=== PATIENT | male | born 1925 | race Two or more races ===

== ENCOUNTER 2016-03-05 05:48 | Emergency (ER) | payer MEDICARE ==
[2016-03-05] MEDS ORDERED: NS 0.9% 1000 ML* 1,000 ML IV ONE (05:58)
[2016-03-05 06:13] LABS: Hematocrit 38 % (42-52); Hemoglobin 11.7 g/dl (14.0-18.0); Mean Corpuscular HGB Conc 31 g/dl (31-36); Mean Corpuscular Hemoglobin 24 pg (27-31); Mean Corpuscular Volume 75 fL (80-94); Mean Platelet Volume 9 um3 (7.4-10.4); Red Blood Count 4.99 10^6/ul (4.0-5.4); Red Cell Distribution Width 15 % (10.5-15); White Blood Count 7.2 10^3/ul (3.5-10.8)
[2016-03-05 06:25] LABS: ALT 10 U/L (7-52); AST 18 U/L (13-39); Alkaline Phosphatase 63 U/L (34-104); Anion Gap 6 mmol/L (2-11); BUN/Creatinine Ratio 15.3 (8-20); Blood Urea Nitrogen 15 mg/dL (6-24); C Reactive Protein < 1.00 mg/L (< 5.00); CO2 Carbon Dioxide 33 mmol/L (22-32); Calcium 9.6 mg/dL (8.6-10.3); Chloride 101 mmol/L (101-111); Creatine Kinase 113 U/L (10-223); EGFR African American 92.6 (>60); Globulin 4.1 g/dL (2-4); Glucose 118 mg/dL (70-100); Lipase 30 U/L (11.0-82.0); Magnesium 2.1 mg/dL (1.9-2.7); Potassium 3.8 mmol/L (3.5-5.0); Sodium 140 mmol/L (133-145); Total Protein 8.1 g/dL (6.4-8.9)
[2016-03-05 06:28] LABS: Troponin I 0.01 ng/mL (<0.04)
[2016-03-05 06:55] LABS: TSH (Thyroid Stimulating Horm) 1.73 mcIU/mL (0.34-5.60)
[2016-03-05 09:29] VITALS: BP 122/76
--- NOTE | 2016-03-05 09:30 | RAD ---
indication: Traumatic injury to the left side of the face after a fall from bed COMPARISON: CT of the brain dated March 16, [address] scan of the brain, maxillofacial bones and c-spine was performed without intravenous contrast enhancement. Contiguous axial sections were obtained from the lung apices through the vertex. BRAIN: The ventricles, cisterns and sulci exhibit stable age-related involutional changes. No significant focal abnormality or mass effect is seen. There is moderate periventricular and subcortical white matter hypoattenuation, unchanged significantly from the most recent brain CT, and most consistent with chronic microvascular disease. Tamez-white differentiation is adequately maintained. There is no evidence for intracranial hemorrhage. No significant bony abnormality is present. The mastoid air cells are appropriately aerated. The visualized paranasal sinuses are clear. FACIAL BONES: Bones: There is no displaced fracture or dislocation. The orbital rim is intact. The zygomatic arch is intact. The pterygoid plates are intact. Bilaterally there is flattening of the mandibular condyles and narrowing of the temporomandibular joints. Orbits: The globes are round. The optic nerves are symmetric. The extraocular musculature is normal. There is no post septal or intraconal inflammatory change. There is no retrobulbar hematoma. Paranasal Sinuses: The paranasal sinuses are clear. C-SPINE: The cervical spine exhibits levo convexed curvature depicted best in the coronal plane. There is nonspecific straightening of the normal cervical lordosis on the sagittal view images. Otherwise the vertebral bodies and facet joints are appropriately aligned. There is no appearance of an acute fracture or dislocation. Advanced degenerative changes include loss of intervertebral disc height, marginal osteophyte formation and uncovertebral hypertrophy is depicted well on the coronal plane images. There is no hyperdense material in the cervical canal to indicate hemorrhage. The visualized musculature and soft tissues are normal. There is no gross lymphadenopathy visualized. There is coarse atherosclerotic calcification of the bilateral carotid bulbs. Incidentally noted is an azygos lobe fissure. The visualized portion of the lung apices are clear. IMPRESSION: 1. Chronic involutional changes and evidence of microvascular disease without acute calvarial fracture or acute intracranial hemorrhage. 2. No facial bone fractures. 3. Advanced degenerative changes of the cervical spine without acute fracture or dislocation.
--- NOTE | 2016-03-05 10:06 | RAD ---
INDICATION: Patient found unresponsive next a bed. COMPARISON: Most recent comparison chest x-ray is dated January 15, 2016 TECHNIQUE: Single AP portable view of the chest was obtained. FINDINGS: Image quality is compromised due to the relative inferiority of a portable chest x-ray. The heart and mediastinum exhibit normal size and contour. The lungs are grossly clear. There is no evidence of a large pleural effusion. Visualized bones are normal for the patient's age. IMPRESSION: No radiographic evidence for acute cardiopulmonary abnormality on this portable chest x-ray.
--- NOTE | 2016-03-08 16:32 | ED ---
Janene Montesinos Adam, scribed for Hakeem Myrick MD on 03/05/16 at 0855 . Progress - Results/Orders Results/Orders: Cervical spine CT: negative for cervical fx or acute cervical malalignment. Heterogeneous appearance to the marrow of C2-C6 vertebrae with punctate lucencies and areas of sclerosis. Brain CT: Involutional changes with mild ventriculomegaly, No bleed, No visible acute infarct, Osseous structures are intact. Maxillofacial CT: Negative - EKG/XRAY/CT XRAY: chest Xray Comments: No acute disease Re-Evaluation - Re-Evaluation First Eval Re-Evaluation Time: 08:53 Change: Improved Comment: Alert, tolerated breakfast, in no distress. Waiting for CXR Course/Dx - Diagnoses Provider Diagnoses: Fall, Hypoglycemia, Abnormal finding on CT scan, C2-C6 bony abnormality The documentation as recorded by the juanibJanene sepulveda Adam accurately reflects the service I personally performed and the decisions made by Elen abdi Jerry, MD.
--- NOTE | 2016-04-03 22:17 | ED ---
Gabriel Montesinos Rebecca, scribed for Kody Zarate MD on 03/05/16 at 0555 . HPI Diabetic <Hakeem Myrick - Last Filed: 03/08/16 16:34> - HPI Summary HPI Summary: Pt is an 89 y/o M BIBA who comes to ED p/w hypoglycemia s/p rolling out of bed. Pt is a resident at [facility]) where he was found on the ground, rolled out of bed at 0330. Pt was helped back into bed. At approximately 0530, pt was found out of bed again, with a blood sugar of 32. This was untreated and at EMS were called, who then reported a blood sugar of 28. En route, EMS administered D50. Sx alleviated by D50, aggravated by nothing. Pt denies any pain when asked. Is on Plavix (blood thinner). - History Of Current Complaint Hx Obtained From: Patient, EMS Onset/Duration: Sudden Onset, Lasting Hours - 2.5 Severity Initially: Moderate Severity Currently: Mild Character: Alert, Other - Minimally verbal Aggravating: Nothing Alleviating: EMS Treatment - D50 Associated Signs & Symptoms: Negative <Kody Zarate - Last Filed: 04/03/16 22:17> - History Of Current Complaint Chief Complaint: EDDiabeticProb Time Seen by Provider: 03/05/16 05:51 - Allergies/Home Medications Allergies/Adverse Reactions: Allergies Allergy/AdvReac Type Severity Reaction Status Date / Time No Known Allergies Allergy Verified 03/16/14 10:11 PMH/Surg Hx/FS Hx/Imm Hx Endocrine/Hematology History: Reports: Hx Diabetes Cardiovascular History: Reports: Hx Hypercholesterolemia, Hx Hypertension Respiratory History: Reports: Other Respiratory Problems/Disorders - home o2 History: Reports: Other Problems/Disorders - hx of unspecified urinary retention Musculoskeletal History: Reports: Hx Arthritis Sensory History: Reports: Hx Contacts or Glasses, Hx Vision Problem - pt stated he , "wears glasses some times to read"., Hx Hearing Problem - Pt stated, "I have a hard time hearing" Opthamlomology History: Reports: Hx Contacts or Glasses, Hx Vision Problem - pt stated he , "wears glasses some times to read". Neurological History: Reports: Other Neuro Impairments/Disorders - Pt has parkinsons history Psychiatric History: Reports: Hx Schizophrenia - Surgical History Surgery Procedure, Year, and Place: PT. STATES STOMACH SURGERY Infectious Disease History: Yes Infectious Disease History: Reports: Hx of Known/Suspected MRSA Denies: Traveled Outside the [place] in Last 30 Days - Family History Known Family History: Positive: Hypertension - Social History Lives: At [facility] Alcohol Use: None Substance Use Type: Reports: None Smoking Status (MU): Former Smoker <Zarate,Kody - Last Filed: 04/03/16 22:17> Review of Systems Positive: Other - Hypoglycemia Negative: Arthralgia All Other Systems Reviewed And Are Negative: Yes <ZarateKody - Last Filed: 04/03/16 22:17> Physical Exam Vital Signs On Initial Exam: Initial Vitals Temp Pulse Resp BP Pulse Ox 36.1 C 89 16 159/104 97 03/05/16 05:49 03/05/16 05:49 03/05/16 05:49 03/05/16 05:49 03/05/16 05:49 <Hakeem Myrick - Last Filed: 03/08/16 16:34> Triage Information Reviewed: Yes Vital Signs On Initial Exam: Initial Vitals Temp Pulse Resp BP Pulse Ox 96.9 F 89 16 159/104 97 03/05/16 05:49 03/05/16 05:49 03/05/16 05:49 03/05/16 05:49 03/05/16 05:49 Vital Signs Reviewed: Yes Appearance: Positive: Well-Appearing, No Pain Distress Skin: Positive: Warm, Skin Color Reflects Adequate Perfusion, Dry Head/Face: Positive: Other - Ecchymosis on the L side of the face Eyes: Positive: EOMI, RHIANNON ENT: Positive: Other - Oral mucosa dry Neck: Positive: Supple, Nontender Respiratory/Lung Sounds: Positive: Clear to Auscultation, Breath Sounds Present Cardiovascular: Positive: RRR Abdomen Description: Positive: Nontender, Soft Bowel Sounds: Positive: Present Musculoskeletal: Positive: Other - Shaking Neurological: Positive: Normal, Sensory/Motor Intact Psychiatric: Positive: Affect/Mood Appropriate AVPU Assessment: Verbal (Reponds To) - Minially verbal <Zarate,Kody - Last Filed: 04/03/16 22:17> Diagnostics - Vital Signs Vital Signs Temp Pulse Resp BP Pulse Ox 03/05/16 09:29 37.0 C 80 16 122/76 98 03/05/16 06:02 94 16 93 03/05/16 06:00 162/81 03/05/16 05:49 36.1 C 89 16 159/104 97 - Laboratory Lab Results: Lab Results 03/05/16 03/05/16 03/05/16 Range/Units 05:44 05:58 05:58 WBC 7.2 (3.5-10.8) 10^3/ul RBC 4.99 (4.0-5.4) 10^6/ul Hgb 11.7 L (14.0-18.0) g/dl Hct 38 L (42-52) % MCV 75 L (80-94) fL MCH 24 L (27-31) pg MCHC 31 (31-36) g/dl RDW 15 (10.5-15) % Plt Count 172 (150-450) 10^3/ul MPV 9 (7.4-10.4) um3 Neut % (Auto) 88.7 H (38-83) % Lymph % (Auto) 5.9 L (25-47) % Bates % (Auto) 5.1 (1-9) % Eos % (Auto) 0.1 (0-6) % Baso % (Auto) 0.2 (0-2) % Absolute Neuts (auto) 6.4 (1.5-7.7) 10^3/ul Absolute Lymphs (auto) 0.4 L (1.0-4.8) 10^3/ul Absolute Monos (auto) 0.4 (0-0.8) 10^3/ul Absolute Eos (auto) 0 (0-0.6) 10^3/ul Absolute Basos (auto) 0 (0-0.2) 10^3/ul Absolute Nucleated RBC 0.01 10^3/ul Nucleated RBC % 0.2 INR (Anticoag Therapy) 1.02 (0.89-1.11) APTT 30.5 (26.0-36.3) seconds Sodium (133-145) mmol/L Potassium (3.5-5.0) mmol/L Chloride (101-111) mmol/L Carbon Dioxide (22-32) mmol/L Anion Gap (2-11) mmol/L BUN (6-24) mg/dL Creatinine (0.67-1.17) mg/dL Est GFR ( Amer) (>60) Est GFR (Non-Af Amer) (>60) BUN/Creatinine Ratio (8-20) Glucose (70-100) mg/dL POC Glucose (mg/dL) 115 H (74-106) mg/dL Lactic Acid (0.5-2.0) mmol/L Calcium (8.6-10.3) mg/dL Magnesium (1.9-2.7) mg/dL Total Bilirubin (0.2-1.0) mg/dL AST (13-39) U/L ALT (7-52) U/L Alkaline Phosphatase (34-104) U/L Total Creatine Kinase (10-223) U/L CK-MB (CK-2) (0.6-6.3) ng/mL Troponin I (<0.04) ng/mL C-Reactive Protein (< 5.00) mg/L B-Natriuretic Peptide ( - 100) pg/mL Total Protein (6.4-8.9) g/dL Albumin (3.2-5.2) g/dL Globulin (2-4) g/dL Albumin/Globulin Ratio (1-3) Lipase (11.0-82.0) U/L TSH (0.34-5.60) mcIU/mL 03/05/16 03/05/16 03/05/16 Range/Units 05:58 05:58 05:58 WBC (3.5-10.8) 10^3/ul RBC (4.0-5.4) 10^6/ul Hgb (14.0-18.0) g/dl Hct (42-52) % MCV (80-94) fL MCH (27-31) pg MCHC (31-36) g/dl RDW (10.5-15) % Plt Count (150-450) 10^3/ul MPV (7.4-10.4) um3 Neut % (Auto) (38-83) % Lymph % (Auto) (25-47) % Bates % (Auto) (1-9) % Eos % (Auto) (0-6) % Baso % (Auto) (0-2) % Absolute Neuts (auto) (1.5-7.7) 10^3/ul Absolute Lymphs (auto) (1.0-4.8) 10^3/ul Absolute Monos (auto) (0-0.8) 10^3/ul Absolute Eos (auto) (0-0.6) 10^3/ul Absolute Basos (auto) (0-0.2) 10^3/ul Absolute Nucleated RBC 10^3/ul Nucleated RBC % INR (Anticoag Therapy) (0.89-1.11) APTT (26.0-36.3) seconds Sodium 140 (133-145) mmol/L Potassium 3.8 (3.5-5.0) mmol/L Chloride 101 (101-111) mmol/L Carbon Dioxide 33 H (22-32) mmol/L Anion Gap 6 (2-11) mmol/L BUN 15 (6-24) mg/dL Creatinine 0.98 (0.67-1.17) mg/dL Est GFR ( Amer) 92.6 (>60) Est GFR (Non-Af Amer) 72.0 (>60) BUN/Creatinine Ratio 15.3 (8-20) Glucose 118 H (70-100) mg/dL POC Glucose (mg/dL) (74-106) mg/dL Lactic Acid 1.9 (0.5-2.0) mmol/L Calcium 9.6 (8.6-10.3) mg/dL Magnesium 2.1 (1.9-2.7) mg/dL Total Bilirubin 0.40 (0.2-1.0) mg/dL AST 18 (13-39) U/L ALT 10 (7-52) U/L Alkaline Phosphatase 63 (34-104) U/L Total Creatine Kinase 113 (10-223) U/L CK-MB (CK-2) 2.6 (0.6-6.3) ng/mL Troponin I 0.01 (<0.04) ng/mL C-Reactive Protein < 1.00 (< 5.00) mg/L B-Natriuretic Peptide 137 H ( - 100) pg/mL Total Protein 8.1 (6.4-8.9) g/dL Albumin 4.0 (3.2-5.2) g/dL Globulin 4.1 H (2-4) g/dL Albumin/Globulin Ratio 1.0 (1-3) Lipase 30 (11.0-82.0) U/L TSH 1.73 (0.34-5.60) mcIU/mL 03/05/16 Range/Units 08:41 WBC (3.5-10.8) 10^3/ul RBC (4.0-5.4) 10^6/ul Hgb (14.0-18.0) g/dl Hct (42-52) % MCV (80-94) fL MCH (27-31) pg MCHC (31-36) g/dl RDW (10.5-15) % Plt Count (150-450) 10^3/ul MPV (7.4-10.4) um3 Neut % (Auto) (38-83) % Lymph % (Auto) (25-47) % Bates % (Auto) (1-9) % Eos % (Auto) (0-6) % Baso % (Auto) (0-2) % Absolute Neuts (auto) (1.5-7.7) 10^3/ul Absolute Lymphs (auto) (1.0-4.8) 10^3/ul Absolute Monos (auto) (0-0.8) 10^3/ul Absolute Eos (auto) (0-0.6) 10^3/ul Absolute Basos (auto) (0-0.2) 10^3/ul Absolute Nucleated RBC 10^3/ul Nucleated RBC % INR (Anticoag Therapy) (0.89-1.11) APTT (26.0-36.3) seconds Sodium (133-145) mmol/L Potassium (3.5-5.0) mmol/L Chloride (101-111) mmol/L Carbon Dioxide (22-32) mmol/L Anion Gap (2-11) mmol/L BUN (6-24) mg/dL Creatinine (0.67-1.17) mg/dL Est GFR ( Amer) (>60) Est GFR (Non-Af Amer) (>60) BUN/Creatinine Ratio (8-20) Glucose (70-100) mg/dL POC Glucose (mg/dL) 133 H (74-106) mg/dL Lactic Acid (0.5-2.0) mmol/L Calcium (8.6-10.3) mg/dL Magnesium (1.9-2.7) mg/dL Total Bilirubin (0.2-1.0) mg/dL AST (13-39) U/L ALT (7-52) U/L Alkaline Phosphatase (34-104) U/L Total Creatine Kinase (10-223) U/L CK-MB (CK-2) (0.6-6.3) ng/mL Troponin I (<0.04) ng/mL C-Reactive Protein (< 5.00) mg/L B-Natriuretic Peptide ( - 100) pg/mL Total Protein (6.4-8.9) g/dL Albumin (3.2-5.2) g/dL Globulin (2-4) g/dL Albumin/Globulin Ratio (1-3) Lipase (11.0-82.0) U/L TSH (0.34-5.60) mcIU/mL Result Diagrams: 03/05/16 05:58 03/05/16 05:58 Lab Statement: Any lab studies that have been ordered have been reviewed, and results considered in the medical decision making process. <Hakeem Myrick - Last Filed: 03/08/16 16:34> - Vital Signs Vital Signs Temp Pulse Resp BP Pulse Ox 03/05/16 09:29 98.6 F 80 16 122/76 98 03/05/16 06:02 94 16 93 03/05/16 06:00 162/81 03/05/16 05:49 96.9 F 89 16 159/104 97 - Laboratory Lab Results: Lab Results 03/05/16 03/05/16 03/05/16 Range/Units 05:44 05:58 05:58 WBC 7.2 (3.5-10.8) 10^3/ul RBC 4.99 (4.0-5.4) 10^6/ul Hgb 11.7 L (14.0-18.0) g/dl Hct 38 L (42-52) % MCV 75 L (80-94) fL MCH 24 L (27-31) pg MCHC 31 (31-36) g/dl RDW 15 (10.5-15) % Plt Count 172 (150-450) 10^3/ul MPV 9 (7.4-10.4) um3 Neut % (Auto) 88.7 H (38-83) % Lymph % (Auto) 5.9 L (25-47) % Bates % (Auto) 5.1 (1-9) % Eos % (Auto) 0.1 (0-6) % Baso % (Auto) 0.2 (0-2) % Absolute Neuts (auto) 6.4 (1.5-7.7) 10^3/ul Absolute Lymphs (auto) 0.4 L (1.0-4.8) 10^3/ul Absolute Monos (auto) 0.4 (0-0.8) 10^3/ul Absolute Eos (auto) 0 (0-0.6) 10^3/ul Absolute Basos (auto) 0 (0-0.2) 10^3/ul Absolute Nucleated RBC 0.01 10^3/ul Nucleated RBC % 0.2 INR (Anticoag Therapy) 1.02 (0.89-1.11) APTT 30.5 (26.0-36.3) seconds Sodium (133-145) mmol/L Potassium (3.5-5.0) mmol/L Chloride (101-111) mmol/L Carbon Dioxide (22-32) mmol/L Anion Gap (2-11) mmol/L BUN (6-24) mg/dL Creatinine (0.67-1.17) mg/dL Est GFR ( Amer) (>60) Est GFR (Non-Af Amer) (>60) BUN/Creatinine Ratio (8-20) Glucose (70-100) mg/dL POC Glucose (mg/dL) 115 H (74-106) mg/dL Lactic Acid (0.5-2.0) mmol/L Calcium (8.6-10.3) mg/dL Magnesium (1.9-2.7) mg/dL Total Bilirubin (0.2-1.0) mg/dL AST (13-39) U/L ALT (7-52) U/L Alkaline Phosphatase (34-104) U/L Total Creatine Kinase (10-223) U/L CK-MB (CK-2) (0.6-6.3) ng/mL Troponin I (<0.04) ng/mL C-Reactive Protein (< 5.00) mg/L B-Natriuretic Peptide ( - 100) pg/mL Total Protein (6.4-8.9) g/dL Albumin (3.2-5.2) g/dL Globulin (2-4) g/dL Albumin/Globulin Ratio (1-3) Lipase (11.0-82.0) U/L TSH (0.34-5.60) mcIU/mL 03/05/16 03/05/16 03/05/16 Range/Units 05:58 05:58 05:58 WBC (3.5-10.8) 10^3/ul RBC (4.0-5.4) 10^6/ul Hgb (14.0-18.0) g/dl Hct (42-52) % MCV (80-94) fL MCH (27-31) pg MCHC (31-36) g/dl RDW (10.5-15) % Plt Count (150-450) 10^3/ul MPV (7.4-10.4) um3 Neut % (Auto) (38-83) % Lymph % (Auto) (25-47) % Bates % (Auto) (1-9) % Eos % (Auto) (0-6) % Baso % (Auto) (0-2) % Absolute Neuts (auto) (1.5-7.7) 10^3/ul Absolute Lymphs (auto) (1.0-4.8) 10^3/ul Absolute Monos (auto) (0-0.8) 10^3/ul Absolute Eos (auto) (0-0.6) 10^3/ul Absolute Basos (auto) (0-0.2) 10^3/ul Absolute Nucleated RBC 10^3/ul Nucleated RBC % INR (Anticoag Therapy) (0.89-1.11) APTT (26.0-36.3) seconds Sodium 140 (133-145) mmol/L Potassium 3.8 (3.5-5.0) mmol/L Chloride 101 (101-111) mmol/L Carbon Dioxide 33 H (22-32) mmol/L Anion Gap 6 (2-11) mmol/L BUN 15 (6-24) mg/dL Creatinine 0.98 (0.67-1.17) mg/dL Est GFR ( Amer) 92.6 (>60) Est GFR (Non-Af Amer) 72.0 (>60) BUN/Creatinine Ratio 15.3 (8-20) Glucose 118 H (70-100) mg/dL POC Glucose (mg/dL) (74-106) mg/dL Lactic Acid 1.9 (0.5-2.0) mmol/L Calcium 9.6 (8.6-10.3) mg/dL Magnesium 2.1 (1.9-2.7) mg/dL Total Bilirubin 0.40 (0.2-1.0) mg/dL AST 18 (13-39) U/L ALT 10 (7-52) U/L Alkaline Phosphatase 63 (34-104) U/L Total Creatine Kinase 113 (10-223) U/L CK-MB (CK-2) 2.6 (0.6-6.3) ng/mL Troponin I 0.01 (<0.04) ng/mL C-Reactive Protein < 1.00 (< 5.00) mg/L B-Natriuretic Peptide 137 H ( - 100) pg/mL Total Protein 8.1 (6.4-8.9) g/dL Albumin 4.0 (3.2-5.2) g/dL Globulin 4.1 H (2-4) g/dL Albumin/Globulin Ratio 1.0 (1-3) Lipase 30 (11.0-82.0) U/L TSH 1.73 (0.34-5.60) mcIU/mL 03/05/16 Range/Units 08:41 WBC (3.5-10.8) 10^3/ul RBC (4.0-5.4) 10^6/ul Hgb (14.0-18.0) g/dl Hct (42-52) % MCV (80-94) fL MCH (27-31) pg MCHC (31-36) g/dl RDW (10.5-15) % Plt Count (150-450) 10^3/ul MPV (7.4-10.4) um3 Neut % (Auto) (38-83) % Lymph % (Auto) (25-47) % Bates % (Auto) (1-9) % Eos % (Auto) (0-6) % Baso % (Auto) (0-2) % Absolute Neuts (auto) (1.5-7.7) 10^3/ul Absolute Lymphs (auto) (1.0-4.8) 10^3/ul Absolute Monos (auto) (0-0.8) 10^3/ul Absolute Eos (auto) (0-0.6) 10^3/ul Absolute Basos (auto) (0-0.2) 10^3/ul Absolute Nucleated RBC 10^3/ul Nucleated RBC % INR (Anticoag Therapy) (0.89-1.11) APTT (26.0-36.3) seconds Sodium (133-145) mmol/L Potassium (3.5-5.0) mmol/L Chloride (101-111) mmol/L Carbon Dioxide (22-32) mmol/L Anion Gap (2-11) mmol/L BUN (6-24) mg/dL Creatinine (0.67-1.17) mg/dL Est GFR ( Amer) (>60) Est GFR (Non-Af Amer) (>60) BUN/Creatinine Ratio (8-20) Glucose (70-100) mg/dL POC Glucose (mg/dL) 133 H (74-106) mg/dL Lactic Acid (0.5-2.0) mmol/L Calcium (8.6-10.3) mg/dL Magnesium (1.9-2.7) mg/dL Total Bilirubin (0.2-1.0) mg/dL AST (13-39) U/L ALT (7-52) U/L Alkaline Phosphatase (34-104) U/L Total Creatine Kinase (10-223) U/L CK-MB (CK-2) (0.6-6.3) ng/mL Troponin I (<0.04) ng/mL C-Reactive Protein (< 5.00) mg/L B-Natriuretic Peptide ( - 100) pg/mL Total Protein (6.4-8.9) g/dL Albumin (3.2-5.2) g/dL Globulin (2-4) g/dL Albumin/Globulin Ratio (1-3) Lipase (11.0-82.0) U/L TSH (0.34-5.60) mcIU/mL Result Diagrams: 03/05/16 05:58 03/05/16 05:58 Lab Statement: Any lab studies that have been ordered have been reviewed, and results considered in the medical decision making process. <Kody Zarate - Last Filed: 04/03/16 22:17> Re-Evaluation - Re-Evaluation First Eval Re-Evaluation Time: 08:53 Change: Improved Comment: Alert, tolerated breakfast, in no distress. Waiting for CXR <Hakeem Myrick - Last Filed: 03/08/16 16:34> Diabetic Course/Dx <Hakeem Myrick - Last Filed: 03/08/16 16:34> - Course Assessment/Plan: DISPOSITION PENDING AT SHIFT CHANGE, STABLE. <Kody Zarate - Last Filed: 04/03/16 22:17> - Diagnoses Provider Diagnoses: Fall, Hypoglycemia, Abnormal finding on CT scan, C2-C6 bony abnormality Discharge <Hakeem Myrick - Last Filed: 03/08/16 16:34> <Kody Zarate - Last Filed: 04/03/16 22:17> - Discharge Plan Condition: Stable Disposition: [facility]ACILITY Patient Education Materials: Diabetic Hypoglycemia (ED) Referrals: Lorena Jose [Primary Care Provider] - The documentation as recorded by the Gabriel daniel Rebecca accurately reflects the service I personally performed and the decisions made by , Kody Zarate MD.
== END 2016-03-05 11:27 ==
LOC: ED 05:48
DX: E16.2 Hypoglycemia, unspecified (principal); M89.9 Disorder of bone, unspecified
CPT/HCPCS: 36415; 70450; 70486; 71010; 72125; 80053; 82550; 82553; 83605; 83690; 83735; 83880; 84443; 84484; 85025; 85610; 85730; 86140; 96360; 99283